=== PATIENT | male | born 1985 | race Caucasian/White ===

== ENCOUNTER 2016-08-26 10:40 | Inpatient (IN) | payer OTHER ==
[2016-08-26 10:47] VITALS: BMI 25.1
--- NOTE | 2016-08-26 12:54 | HP ---
COWS - Scale Resting Pulse: 1= [place] 81-100 Sweatin= No chills or Flushing Restless Observation: 3= Extraneous Movement Pupil Size: 2= Moderately Dilated Bone or Joint Aches: 2= Severe Diffuse Aches Runny Nose/ Eye Tearin= Nasal Congestion GI Upset > 30mins: 1= Stomach Cramp Tremor Observation: 2= Slight Tremor Visible Yawning Observation: 2= >3x During Session Anxiety or Irritability: 2=Irritable/Anxious Goose Flesh Skin: 3=Piloerection COWS Score: 19 CIWA Score - CIWA Score Nausea/Vomitin Muscle Tremors: 3 Anxiety: 4-Mod. Anxious/Guarded Agitation: 4-Moderately Restless Paroxysmal Sweats: 1-Minimal Palms Moist Orientation: 0-Oriented Tacttile Disturbances: 2-Mild Itch/Numbness/Burn Auditory Disturbances: 0-None Visual Disturbances: 0-None Headache: 0-None Present CIWA-Ar Total Score: 16 Admission ROS S - HPI Chief Complaint: DETOX [place] FOR HEROIN,ALCOHOL AND XANAX DEPENDENCE Allergies/Adverse Reactions: Allergies Allergy/AdvReac Type Severity Reaction Status Date / Time No Known Allergies Allergy Verified 08/26/16 11:08 History of Present Illness: 31 Y/O MALE WITH A HX OF ALCOHOL,HEROIN, XANAX AND COCAINE DEPENDENCE SEEKING DETOX [place]. Exam Limitations: No Limitations - Ebola screening Have you traveled outside of the country in the last 21 days: No Have you had contact with anyone from an Ebola affected area: No Have you been sick,other than usual withdrawal symptoms: No Do you have a fever: No - Review of Systems Constitutional: Chills, Loss of Appetite, Night Sweats, Changes in sleep EENT: reports: Nose Congestion Respiratory: reports: No Symptoms reported Cardiac: reports: No Symptoms Reported GI: reports: Poor Fluid Intake, Abdominal cramping : reports: No Symptoms Reported Musculoskeletal: reports: Back Pain, Joint Pain, Muscle Pain Integumentary: reports: No Symptoms Reported Neuro: reports: Tremors Endocrine: reports: No Symptoms Reported Hematology: reports: No Symptoms Reported Psychiatric: reports: Orientated x3, Anxious Other Systems: Reviewed and Negative Patient History - Patient Medical History Hx Anemia: No Hx Asthma: No Hx Chronic Obstructive Pulmonary Disease (COPD): No Hx Cardiac Disorders: No Hx Hypertension: No Hx Hypercholesterolemia: No HX Cerebrovascular Accident: No Hx Seizures: No Hx Diabetes: No Hx Gastrointestinal Disorders: No Hx Genitourinary Disorders: No Hx Sexually Transmitted Disorders: No Hx Renal Disease (ESRD): No Hx Thyroid Disease: No Hx Human Immunodeficiency Virus (HIV): No (NEGATIVE HX) Hx Hepatitis C: No Hx Depression: No Hx Suicide Attempt: No (DENIES) Hx Schizophrenia: No - Patient Surgical History Past Surgical History: No Hx Neurologic Surgery: No Hx Cataract Extraction: No Hx Cardiac Surgery: No Hx Lung Surgery: No Hx Breast Surgery: No Hx Breast Biopsy: No Hx Abdominal Surgery: No Hx Appendectomy: No Hx Cholecystectomy: No Hx Genitourinary Surgery: No Hx Orthopedic Surgery: No Anesthesia Reaction: No - PPD History Previous Implant?: Yes Documented Results: Negative w/o proof Implanted On Prior R Admission?: No Results: TBD PPD to be Administered?: Yes - Reproductive History Patient is a Female of Child Bearing Age (11 -55 yrs old): No (MALE) - Smoking Cessation Smoking history: Current every day smoker Have you smoked in the past 12 months: Yes Aproximately how many cigarettes per day: 30 Hx Chewing Tobacco Use: No Initiated information on smoking cessation: Yes 'Breaking Loose' booklet given: 08/26/16 - Substance & Tx. History Hx Alcohol Use: Yes ([facility])/ BEER) Hx Substance Use: Yes (HEROIN/COCAINE/XANAX) Substance Use Type: Alcohol, Cocaine, Heroin, Tranquilizers Hx Substance Use Treatment: No (FIRST TIME IN [place] TODAY) - Substances Abused Heroin Route: Inhalation Frequency: Daily Amount used: 25 BAGS Age of first use: 30 Date of Last Use: 08/26/16 Alcohol Route: Oral Frequency: 3-6 times per week Amount used: 1/2 [place] Age of first use: 17 Date of Last Use: 08/23/16 Alprazolam (Xanax) Route: Oral Frequency: 1-2 times per week Amount used: 2MG Age of first use: 29 Date of Last Use: 08/21/16 Cocaine Route: Inhalation Frequency: 1-2 times per week Amount used: 2 GRAMS Age of first use: 22 Date of Last Use: 08/23/16 Family Disease History - Family Disease History Family History: Denies Admission Physical Exam BHS - Vital Signs Vital Signs: Vital Signs - 24 hr 08/26/16 10:41 Temperature 98 F Pulse Rate 81 Respiratory 20 Rate Blood Pressure 133/73 - Physical General Appearance: Yes: Moderate Distress, Irritable, Anxious HEENTM: Yes: EOMI, Normocephalic, MARYSE, Pharynx Normal Respiratory: Yes: Chest Non-Tender, Lungs Clear, Normal Breath Sounds, No Respiratory Distress Breast: Yes: Breast Exam Deferred Cardiology: Yes: Regular Rhythm, Regular Rate, S1, S2 Abdominal: Yes: Normal Bowel Sounds, Non Tender, Flat, Soft Genitourinary: Yes: Other (N/C) Back: Yes: Within Normal Limits Musculoskeletal: Yes: full range of Motion, Gait Steady Extremities: Yes: Normal Range of Motion, Non-Tender 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: 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, Fully Oriented, Alert, Motor Strength 5/5 Integumentary: Yes: Dry, Warm Lymphatic: Yes: Within Normal Limits - Diagnostic (1) Alcohol dependence with uncomplicated withdrawal Current Visit: Yes Status: Acute (2) Opioid dependence with withdrawal Current Visit: Yes Status: Acute (3) Sedative, hypnotic or anxiolytic dependence with withdrawal, uncomplicated Current Visit: Yes Status: Acute (4) Cocaine dependence, uncomplicated Current Visit: Yes Status: Acute Cleared for Admission [facility] - Detox or Rehab [facility] Level of Care: Medically Managed Detox Regimen/Protocol: Methadone/Librium [facility] Breath Alcohol Content Breath Alcohol Content: 0 Urine Drug Screen - Results Drug Screen Negative: No Urine Drug Screen Results: CHRIS-Cocaine, OPI-Opiates
[2016-08-26] MEDS ORDERED: NICOTINE POLACRILEX 4 MG GUM BUC PRN (13:02)
[2016-08-26] MEDS ORDERED: MAGNESIUM HYDROX 2400MG/30ML ORAL SUSPENSION 30 ML CUP PO PRN (13:02)
[2016-08-26] MEDS ORDERED: chlordiazePOXIDE HCL 25 MG CAPSULE PO ONE (13:02)
[2016-08-26] MEDS ORDERED: MENTHOL/PHENOL 1 EACH UD MM PRN (13:02)
[2016-08-26] MEDS ORDERED: MAG HYDROX/AL HYDROX/SIMETH 30 ML UNIT-DOSE CUP PO PRN (13:02)
[2016-08-26] MEDS ORDERED: MAGNESIUM CITRATE 300 ML BOTTLE PO PRN (13:02)
[2016-08-26] MEDS ORDERED: diphenhydrAMINE HCL 50 MG CAPSULE PO PRN (13:02)
[2016-08-26] MEDS ORDERED: chlordiazePOXIDE HCL 25 MG CAPSULE PO PRN (13:02)
[2016-08-26] MEDS ORDERED: P-EPHED 60MG/TRIPROLIDI 2.5MG TABLET PO PRN (13:02)
[2016-08-26] MEDS ORDERED: IBUPROFEN 400 MG TABLET (FP) PO PRN (13:02)
[2016-08-26] MEDS ORDERED: ACETAMINOPHEN 325 MG TABLET (FP) PO PRN (13:02)
[2016-08-26] MEDS ORDERED: hydrOXYzine PAMOATE 25 MG CAPSULE (FP) PO PRN (13:02)
[2016-08-26] MEDS ORDERED: LOPERAMIDE HCL 2 MG CAPSULE PO PRN (13:02)
[2016-08-26] MEDS ORDERED: guaiFENesin/D-METHORPHAN HB 10 ML UNIT-DOSE CUPS PO PRN (13:02)
[2016-08-26] MEDS ORDERED: METHADONE HCL 10 MG TABLET (FOR DETOX USE ONLY) PO ONE ×2 (13:08→23:00)
[2016-08-26] MEDS: NICOTINE 21 MG/24 HOURS TOPICAL PATCH TD SCH (13:35)
--- NOTE | 2016-08-26 16:14 | EKG ---
Test Reason : Blood Pressure : / mmHG Vent. Rate : 077 BPM Atrial Rate : 077 BPM P-R Int : 164 ms QRS Dur : 100 ms QT Int : 394 ms P-R-T Axes : 067 032 055 degrees QTc Int : 445 ms NORMAL SINUS RHYTHM NORMAL ECG NO PREVIOUS ECGS AVAILABLE Confirmed by FRANK GLEZ MD ([id number]) on 08/26/2016 4:14:26 PM Referred By: Confirmed By:FRANK GLEZ MD
[2016-08-26] MEDS: chlordiazePOXIDE HCL 25 MG CAPSULE PO SCH ×2 (17:30→22:20)
[2016-08-26 20:02] LABS: URINE APPEARANCE CLEAR; URINE BILIRUBIN NEGATIVE (NEGATIVE); URINE BLOOD NEGATIVE (NEGATIVE); URINE COLOR LTYELLOW; URINE GLUCOSE (UA) NEGATIVE (NEGATIVE); URINE KETONE NEGATIVE (NEGATIVE); URINE LEUK ESTERASE NEGATIVE (NEGATIVE); URINE NITRITE NEGATIVE (NEGATIVE); URINE PROTEIN NEGATIVE (NEGATIVE); URINE UROBILINOGEN NEGATIVE E.U./dl (0.2-1.0)
[2016-08-26] MEDS ORDERED: THIAMINE HCL 100 MG TABLET (FP) PO SCH (22:00)
[2016-08-27] MEDS: chlordiazePOXIDE HCL 25 MG CAPSULE PO SCH ×2 (05:46→10:29)
[2016-08-27] MEDS ORDERED: METHADONE HCL 10 MG TABLET (FOR DETOX USE ONLY) PO SCH (10:00)
[2016-08-27] MEDS ORDERED: PRENATAL VITAMINS W/ FOLIC ACID TABLET (FP) PO SCH (10:00)
[2016-08-27 10:08] LABS: MCH 29.2 pg (25.7-33.7); MCHC 33.2 g/dl (32.0-35.9); MEAN PLT VOLUME 8.6 fl (7.5-11.1); PLATELET COUNT 213 K/MM3 (134-434); RDW 14.3 % (11.9-15.9); WHITE BLOOD COUNT 9.1 K/mm3 (4.0-10.0)
--- NOTE | 2016-08-27 10:20 | PN ---
[facility] CIWA - CIWA Score Nausea/Vomitin-No Nausea/No Vomiting Muscle Tremors: 4-Moderate,w/Arms Extend Anxiety: 4-Mod. Anxious/Guarded Agitation: 4-Moderately Restless Paroxysmal Sweats: 2 Orientation: 0-Oriented Tacttile Disturbances: 3-Moderate Itch/Numb/Burn Auditory Disturbances: 0-None Visual Disturbances: 0-None Headache: 0-None Present CIWA-Ar Total Score: 17 BHS COWS - Scale Resting Pulse: 0= [place] 80 or Below Sweatin= Chills/Flushing Restless Observation: 3= Extraneous Movement Pupil Size: 2= Moderately Dilated Bone or Joint Aches: 4=Acute Joint/Muscle Pain Runny Nose/ Eye Tearin= Nasal Congestion GI Upset > 30mins: 1= Stomach Cramp Tremor Observation of Outstretched Hands: 1= Tremor [place], Not Seen Yawning Observation: 1= 1-2x During Session Anxiety or Irritability: 2=Irritable/Anxious Goose Flesh Skin: 0=Smooth Skin COWS Score: 16 [facility] Progress Note (SOAP) Subjective: ANXIETY,SWEATS,FATIGUE Objective: 08/27/16 10:19 Vital Signs Temperature 97.3 F L 08/27/16 09:48 Pulse Rate 70 08/27/16 09:48 Respiratory Rate 18 08/27/16 09:48 Blood Pressure 94/57 08/27/16 09:48 O2 Sat by Pulse Oximetry (%) Laboratory Last Values WBC 9.1 K/mm3 (4.0-10.0) 08/27/16 05:50 RBC 4.97 M/mm3 (4.00-5.60) 08/27/16 05:50 Hgb 14.5 GM/dL (11.7-16.9) 08/27/16 05:50 Hct 43.7 % (35.4-49) 08/27/16 05:50 MCV 88.0 fl (80-96) 08/27/16 05:50 MCHC 33.2 g/dl (32.0-35.9) 08/27/16 05:50 RDW 14.3 % (11.9-15.9) 08/27/16 05:50 Plt Count 213 K/MM3 (134-434) 08/27/16 05:50 MPV 8.6 fl (7.5-11.1) 08/27/16 05:50 Urine Color Ltyellow 08/26/16 19:00 Urine Appearance Clear 08/26/16 19:00 Urine pH 5.0 (5.0-8.0) 08/26/16 19:00 Ur Specific [place] 1.023 (1.001-1.035) 08/26/16 19:00 Urine Protein Negative (NEGATIVE) 08/26/16 19:00 Urine Glucose (UA) Negative (NEGATIVE) 08/26/16 19:00 Urine Ketones Negative (NEGATIVE) 08/26/16 19:00 Urine Blood Negative (NEGATIVE) 08/26/16 19:00 Urine Nitrite Negative (NEGATIVE) 08/26/16 19:00 Urine Bilirubin Negative (NEGATIVE) 08/26/16 19:00 Urine Urobilinogen Negative E.U./dl (0.2-1.0) 08/26/16 19:00 Ur Leukocyte Esterase Negative (NEGATIVE) 08/26/16 19:00 Assessment: 08/27/16 10:19 WITHDRAWAL SX Plan: CONTINUE DETOX
[2016-08-27] MEDS: NICOTINE 21 MG/24 HOURS TOPICAL PATCH TD SCH (10:30)
[2016-08-27 11:28] LABS: ALBUMIN 4.5 g/dl (3.4-5.0); ALK PHOS 69 U/L (45-117); ANION GAP 10 (8-16); BILIRUBIN,TOTAL 0.8 mg/dL (0.2-1.0); CALCIUM 9.2 mg/dL (8.5-10.1); CO2 24 mmol/L (21-32); CREATININE 1.1 mg/dL (0.7-1.3); GLUCOSE,RANDOM 87 mg/dL (74-106); SGOT/AST 15 U/L (15-37); SGPT/ALT 25 U/L (12-78); TOT PROT 7.9 g/dl (6.4-8.2)
[2016-08-27] MEDS ORDERED: chlordiazePOXIDE HCL 25 MG CAPSULE PO SCH (17:00)
[2016-08-27 18:10] VITALS: BP 118/70; PULSE 78; TEMP 98.3
--- NOTE | 2016-08-27 21:09 | DS ---
[facility] Detox Discharge Summary Admission Date: 08/26/16 Discharge Date: 08/27/16 - History Present History: Alcohol Dependence, Opioid Dependence, Sedative Dependence Additional Comments: patient wants to leave the facility now, had verbal disagreement with staff patient signed out refused to wait face to face with the provider - Physical Exam Results Vital Signs: Vital Signs Temperature 98.3 F 08/27/16 18:10 Pulse Rate 78 08/27/16 18:10 Respiratory Rate 18 08/27/16 18:10 Blood Pressure 118/70 08/27/16 18:10 O2 Sat by Pulse Oximetry (%) Pertinent Admission Physical Exam Findings: withdrawal sx Laboratory Last Values WBC 9.1 K/mm3 (4.0-10.0) 08/27/16 05:50 RBC 4.97 M/mm3 (4.00-5.60) 08/27/16 05:50 Hgb 14.5 GM/dL (11.7-16.9) 08/27/16 05:50 Hct 43.7 % (35.4-49) 08/27/16 05:50 MCV 88.0 fl (80-96) 08/27/16 05:50 MCHC 33.2 g/dl (32.0-35.9) 08/27/16 05:50 RDW 14.3 % (11.9-15.9) 08/27/16 05:50 Plt Count 213 K/MM3 (134-434) 08/27/16 05:50 MPV 8.6 fl (7.5-11.1) 08/27/16 05:50 Sodium 140 mmol/L (136-145) 08/27/16 05:50 Potassium 4.2 mmol/L (3.5-5.1) 08/27/16 05:50 Chloride 106 mmol/L (98-107) 08/27/16 05:50 Carbon Dioxide 24 mmol/L (21-32) 08/27/16 05:50 Anion Gap 10 (8-16) 08/27/16 05:50 BUN 22 mg/dL (7-18) H 08/27/16 05:50 Creatinine 1.1 mg/dL (0.7-1.3) 08/27/16 05:50 Creat Clearance w eGFR > 60 (>60) 08/27/16 05:50 Random Glucose 87 mg/dL (74-106) 08/27/16 05:50 Calcium 9.2 mg/dL (8.5-10.1) 08/27/16 05:50 Total Bilirubin 0.8 mg/dL (0.2-1.0) 08/27/16 05:50 AST 15 U/L (15-37) 08/27/16 05:50 ALT 25 U/L (12-78) 08/27/16 05:50 Alkaline Phosphatase 69 U/L (45-117) 08/27/16 05:50 Total Protein 7.9 g/dl (6.4-8.2) 08/27/16 05:50 Albumin 4.5 g/dl (3.4-5.0) 08/27/16 05:50 Urine Color Ltyellow 08/26/16 19:00 Urine Appearance Clear 08/26/16 19:00 Urine pH 5.0 (5.0-8.0) 08/26/16 19:00 Ur Specific [place] 1.023 (1.001-1.035) 08/26/16 19:00 Urine Protein Negative (NEGATIVE) 08/26/16 19:00 Urine Glucose (UA) Negative (NEGATIVE) 08/26/16 19:00 Urine Ketones Negative (NEGATIVE) 08/26/16 19:00 Urine Blood Negative (NEGATIVE) 08/26/16 19:00 Urine Nitrite Negative (NEGATIVE) 08/26/16 19:00 Urine Bilirubin Negative (NEGATIVE) 08/26/16 19:00 Urine Urobilinogen Negative E.U./dl (0.2-1.0) 08/26/16 19:00 Ur Leukocyte Esterase Negative (NEGATIVE) 08/26/16 19:00 RPR Titer Nonreactive (NONREACTIVE) 08/27/16 05:50 lab noted - Treatment Hospital Course: Detox Protocol Followed, Responded well - Medication Discharge Medications: Ambulatory Orders NK [No Known Home Medication] 08/26/16 - AMA Did Patient Leave Against Medical Advice: Yes
[2016-08-28] MEDS ORDERED: METHADONE HCL 5 MG TABLET (FOR DETOX USE ONLY) PO SCH (10:00)
[2016-08-28] MEDS ORDERED: chlordiazePOXIDE 5 MG CAPSULE PO SCH (17:00)
[2016-08-29] MEDS ORDERED: chlordiazePOXIDE HCL 10 MG CAPSULE PO SCH (17:00)
[2016-08-30] MEDS ORDERED: METHADONE HCL 10 MG TABLET (FOR DETOX USE ONLY) PO SCH (10:00)
[2016-08-31] MEDS ORDERED: METHADONE HCL 5 MG TABLET (FOR DETOX USE ONLY) PO SCH (06:00)
== END 2016-08-27 18:52 | disposition left against medical advice (07) | DRG 770 ==
LOC: YASAS 10:40 → Y3N 12:34
PROVIDERS: ADMIT Internal Medicine; ATTEND Internal Medicine
PROC: HZ2ZZZZ Detoxification Services for Substance Abuse Treatment (ICD-10-PCS; principal; 2016-08-26)
DX: F11.23 Opioid dependence with withdrawal (principal); F13.230 Sedative, hypnotic or anxiolytic dependence with withdrawal, uncomplicated; F10.230 Alcohol dependence with withdrawal, uncomplicated; F14.20 Cocaine dependence, uncomplicated
CPT/HCPCS: 36415; 80053; 81003; 85027; 86593; 93005; 93010

== ENCOUNTER 2019-05-28 10:21 | Inpatient (IN) | payer OTHER ==
[2019-05-28 11:05] VITALS: BMI 23.8
--- NOTE | 2019-05-28 13:25 | HP ---
COWS - Scale Resting Pulse: 0= [place] 80 or Below Sweatin= Chills/Flushing Restless Observation: 1= Difficult to Sit Still Pupil Size: 0= Normal to Room Light Bone or Joint Aches: 1= Mild Discomfort Runny Nose/ Eye Tearin= Nasal Congestion GI Upset > 30mins: 3= Vomiting/Diarrhea Tremor Observation: 2= Slight Tremor Visible Yawning Observation: 0= None Anxiety or Irritability: 2=Irritable/Anxious Goose Flesh Skin: 3=Piloerection COWS Score: 14 CIWA Score Nausea/Vomitin Muscle Tremors: None Anxiety: 4-Mod. Anxious/Guarded Agitation: 1-Slight > Activity Paroxysmal Sweats: 1-Minimal Palms Moist Orientation: 0-Oriented Tacttile Disturbances: 0-None Auditory Disturbances: 0-None Visual Disturbances: 0-None Headache: 2-Mild CIWA-Ar Total Score: 13 - Admission Criteria [facility] Guidelines: Admission for Medically Managed Detox: Requires at least one of the followin. CIWA greater than 12 2. Seizures within the past 24 hours 3. Delirium tremens within the past 24 hours 4. Hallucinations within the past 24 hours 5. Acute intervention needed for co occurring medical disorder 6. Acute intervention needed for co occurring psychiatric disorder 7. Severe withdrawal that cannot be handled at a lower level of care (continued vomiting, continued diarrhea, abnormal vital signs) requiring intravenous medication and/or fluids 8. Admitting History and Physical - Admission Chief Complaint: opioid, alcohol dependence. crack, benzo abuse Limitations to Obtaining History: No Limitations - Past Medical History Additional Past Medical History: sciatica - Past Surgical History Past Surgical History: Yes: None - Smoking History Smoking history: Current every day smoker Have you smoked in the past 12 months: Yes Aproximately how many cigarettes per day: 30 - Alcohol/Substance Use Hx Alcohol Use: Yes ([facility]([place])/ BEER) Admission ROS S - HPI Allergies/Adverse Reactions: Allergies Allergy/AdvReac Type Severity Reaction Status Date / Time No Known Allergies Allergy Verified 05/28/19 10:55 History of Present Illness: 34 y.o. M PMH sciatica, hx of incarceration 3 yrs ago presenting for detox. He wants to start doing right by his and son and would like to get clean not only for them but for himself Pt had never completed a detox or rehab program in the past. Heroin: Sniffs, never IVDU. Used x 4 years. Last used last night, 8 bags. 1-1.5 bundles daily. Patient is currently in methadone 60mg (obtains from [facility]). Crack: uses x 2 weeks. Smokes, never injected. Used ~0.5g daily. Xanax: x2 months from street. Uses 3-5 pills 2mg each daily. EtOH: has been drinking since age 16. Longest sober period 10 years, recently started drinking again 1 month ago. Drink of choice [facility]. Drinks 1 pint daily. Never passed out from drinking. Never had seizures from not drinking. PSH: none Social hx: Lives in [place] in apartment, alone. Has good family support system. Not currently working. All: NKDA/ NKFA Meds: none Exam Limitations: No Limitations - Ebola screening Have you traveled outside of the country in the last 21 days: No (N) Have you had contact with anyone from an Ebola affected area: No - Review of Systems Constitutional: No Symptoms Reported Patient History - Patient Medical History Hx Anemia: No Hx Asthma: No Hx Chronic Obstructive Pulmonary Disease (COPD): No Hx Cardiac Disorders: No Hx Hypertension: No Hx Hypercholesterolemia: No HX Cerebrovascular Accident: No Hx Seizures: No Hx Diabetes: No Hx Gastrointestinal Disorders: No Hx Genitourinary Disorders: No Hx Sexually Transmitted Disorders: No Hx Renal Disease (ESRD): No Hx Thyroid Disease: No Hx Human Immunodeficiency Virus (HIV): No (NEGATIVE HX) Hx Hepatitis C: No Hx Depression: No Hx Suicide Attempt: No (DENIES) Hx Schizophrenia: No - Patient Surgical History Past Surgical History: No Hx Neurologic Surgery: No Hx Cataract Extraction: No Hx Cardiac Surgery: No Hx Lung Surgery: No Hx Breast Surgery: No Hx Breast Biopsy: No Hx Abdominal Surgery: No Hx Appendectomy: No Hx Cholecystectomy: No Hx Genitourinary Surgery: No Hx Orthopedic Surgery: No Anesthesia Reaction: No - PPD History Date: 08/28/16 Results: TBD - Smoking Cessation Smoking history: Current every day smoker Have you smoked in the past 12 months: Yes Aproximately how many cigarettes per day: 30 Hx Chewing Tobacco Use: No Initiated information on smoking cessation: Yes 'Breaking Loose' booklet given: 05/28/19 - Substances abused Alcohol Substance route: Oral Frequency: Daily Amount used: 1 pint of vodka Age of first use: 16 Date of last use: 05/27/19 Crack Substance route: Smoking Frequency: 1-2 times per week Amount used: $40 Age of first use: 25 Date of last use: 05/27/19 Heroin Substance route: Inhalation Frequency: Daily Amount used: 1-2 bundles Age of first use: 30 Date of last use: 05/27/19 Alprazolam (Xanax) Substance route: Oral Frequency: 3-6 times per week Amount used: 4-5/2mg tabs Age of first use: 30 Date of last use: 05/27/19 Admission Physical Exam [facility] - Vital Signs Vital Signs: Vital Signs - 24 hr 05/28/19 10:49 Temperature 97.5 F L Pulse Rate 73 Respiratory 16 Rate Blood Pressure 110/67 - Physical General Appearance: Yes: Within Normal Limits, No Apparent Distress HEENTM: Yes: Hearing grossly Normal, Normocephalic, MARYSE Respiratory: Yes: Within Normal Limits, Lungs Clear, Normal Breath Sounds Cardiology: Yes: Within Normal Limits, Regular Rhythm, Regular Rate, S1, S2 Abdominal: Yes: Normal Bowel Sounds, Non Tender, Soft Back: Yes: Normal Inspection, Other (tender to palp) Musculoskeletal: Yes: Within Normal Limits, full range of Motion Extremities: Yes: Within Normal Limits, Normal Range of Motion, Non-Tender 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: 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, Fully Oriented, Alert Integumentary: Yes: Within Normal Limits Lymphatic: Yes: Within Normal Limits - Diagnostic (1) Alcohol dependence with uncomplicated withdrawal Current Visit: No Status: Acute (2) Cocaine dependence, uncomplicated Current Visit: No Status: Acute (3) Opioid dependence with withdrawal Current Visit: No Status: Acute (4) Sedative, hypnotic or anxiolytic dependence with withdrawal, uncomplicated Current Visit: No Status: Acute Cleared for Admission [facility] - Detox or Rehab [facility] Level of Care: Medically Supervised Screened but not Admitted - Documentation of Visit Screened but not Admitted: No Breathalyzer - Breathalyzer Breathalyzer: 0 Urine Drug Screen - Test Device Lot number: [id number] Expiration date: 01/01/21 - Control Is test valid?: Yes - Results Drug screen NEGATIVE: No Urine drug screen results: CHRIS-Cocaine, FEN-Fentanyl, MOP-Opiates, OXY-Oxycodone , MTD-Methadone, BZO-Benzodiazepines Inpatient Rehab Admission - Rehab Decision to Admit Inpatient rehab admission?: No
--- NOTE | 2019-05-28 14:23 | PN ---
"Teaching Attending Note Name of Resident: Kayla Jeong ATTENDING PHYSICIAN STATEMENT I saw and evaluated the patient. I reviewed the resident's note and discussed the case with the resident. I agree with the resident's findings and plan as documented. SUBJECTIVE: 34 y.o. M pt requesting detox from etoh and benzo use , prior detox @ this facility 2016, reports 1 pint liquor/ d Heroin: denies IVDU, currently in MMTP 60 mg /day , first used 4 years ago , latest use last night, 8 bags of heroin , average daily use 1-1.5 bundle . Crack: use x 2 weeks via inhalation . Xanax: x [address], 3-5 sticks of 2mg each. OBJECTIVE: wnwd This report was requested by: Akila Gallardo | Reference #: [id number] Others' Prescriptions Patient Name: Spencer Silva Date: 1985 Address: [address] [place] [address] Sex: Male Rx Written Rx Dispensed Drug Quantity Days Supply Prescriber Name 01/07/2019 01/09/2019 chlordiazepoxide 25 mg capsule 18 3 O' Meally-Tara Bal Vital Signs - 24 hr 05/28/19 10:49 Temperature 97.5 F L Pulse Rate 73 Respiratory 16 Rate Blood Pressure 110/67 ASSESSMENT AND PLAN: Alcohol dependence / Sedative dependence - Librium detox Opioid dependence on agonist therapy nicotine dependence / cocaine dependence ."
[2019-05-28] MEDS ORDERED: MENTHOL/PHENOL 1 EACH UD MM PRN (14:26)
[2019-05-28] MEDS ORDERED: hydrOXYzine PAMOATE 25 MG CAPSULE (FP) PO PRN (14:26)
[2019-05-28] MEDS ORDERED: ACETAMINOPHEN 325 MG TABLET (FP) PO PRN ×2 (14:26)
[2019-05-28] MEDS ORDERED: chlordiazePOXIDE HCL 10 MG CAPSULE PO PRN (14:26)
[2019-05-28] MEDS ORDERED: NICOTINE POLACRILEX 2 MG GUM BUC PRN (14:26)
[2019-05-28] MEDS ORDERED: BISMUTH SUBSALICYLATE 262 MG/15 ML BTL PO PRN (14:26)
[2019-05-28] MEDS ORDERED: MAGNESIUM CITRATE 300 ML BOTTLE PO PRN (14:26)
[2019-05-28] MEDS ORDERED: METHOCARBAMOL 500 MG TABLET PO PRN (14:26)
[2019-05-28] MEDS ORDERED: MAG HYDROX/AL HYDROX/SIMETH 30 ML UNIT-DOSE CUP PO PRN (14:26)
[2019-05-28] MEDS ORDERED: MELATONIN 5 MG TABLETS PO PRN (14:26)
[2019-05-28] MEDS ORDERED: IBUPROFEN 400 MG TABLET (FP) PO PRN (14:26)
[2019-05-28] MEDS ORDERED: MAGNESIUM HYDROX 2400MG/30ML ORAL SUSPENSION 30 ML CUP PO PRN (14:26)
[2019-05-28] MEDS: NICOTINE 14 MG/24 HOURS TOPICAL PATCH TD SCH (16:07)
[2019-05-28 17:02] LABS: HEMATOCRIT 37.8 % (35.4-49); HEMOGLOBIN 12.6 GM/dL (11.7-16.9); MCH 28.5 pg (25.7-33.7); MCHC 33.3 g/dl (32.0-35.9); MEAN CELL VOLUME 85.6 fl (80-96); MEAN PLT VOLUME 8.2 fl (7.5-11.1); PLATELET COUNT 257 K/MM3 (134-434); RBC 4.42 M/mm3 (4.00-5.60); RDW 14.8 % (11.9-15.9)
[2019-05-28 17:14] LABS: ALBUMIN 4.6 g/dl (3.4-5.0); BILIRUBIN,TOTAL 1.1 mg/dL (0.2-1); BLOOD UREA NITROGEN 19.8 mg/dL (7-18); CALCIUM 9.6 mg/dL (8.5-10.1); CREATININE 1.1 mg/dL (0.55-1.3); POTASSIUM 3.3 mmol/L (3.5-5.1)
[2019-05-28] MEDS ORDERED: THIAMINE HCL 100 MG TABLET (FP) PO SCH (22:00)
[2019-05-28] MEDS: chlordiazePOXIDE HCL 25 MG CAPSULE PO SCH (22:57)
[2019-05-29] MEDS: chlordiazePOXIDE HCL 25 MG CAPSULE PO SCH ×2 (05:54→15:48)
[2019-05-29] MEDS ORDERED: PRENATAL VITAMINS W/ FOLIC ACID TABLET (FP) PO SCH (10:00)
[2019-05-29] MEDS: NICOTINE 14 MG/24 HOURS TOPICAL PATCH TD SCH (12:02)
--- NOTE | 2019-05-29 12:49 | PN ---
S CIWA - CIWA Score Nausea/Vomitin-No Nausea/No Vomiting Muscle Tremors: 2 Anxiety: 2 Agitation: 0-Normal Activity Paroxysmal Sweats: 3 Orientation: 0-Oriented Tacttile Disturbances: 0-None Auditory Disturbances: 0-None Visual Disturbances: 0-None Headache: 2-Mild CIWA-Ar Total Score: 9 S COWS - Scale Resting Pulse: 0= [place] 80 or Below Sweatin= Beads of Sweat on Face Restless Observation: 1= Difficult to Sit Still Pupil Size: 0= Normal to Room Light Bone or Joint Aches: 2= Severe Diffuse Aches Runny Nose/ Eye Tearin= None GI Upset > 30mins: 0= None Tremor Observation of Outstretched Hands: 0= None Yawning Observation: 1= 1-2x During Session Anxiety or Irritability: 2=Irritable/Anxious Goose Flesh Skin: 0=Smooth Skin COWS Score: 9 S Progress Note (SOAP) Subjective: c/o sweats, anxiety, irritability, and headache. Objective: 05/29/19 12:54 Vital Signs 05/29/19 05/29/19 06:40 08:00 Temperature 97.7 F 98.1 F Pulse Rate 60 54 L Respiratory 18 18 Rate Blood Pressure 100/55 L 100/51 L Lab Results WBC 8.0 K/mm3 (4.0-10.0) 05/28/19 14:50 RBC 4.42 M/mm3 (4.00-5.60) 05/28/19 14:50 Hgb 12.6 GM/dL (11.7-16.9) 05/28/19 14:50 Hct 37.8 % (35.4-49) 05/28/19 14:50 MCV 85.6 fl (80-96) 05/28/19 14:50 MCHC 33.3 g/dl (32.0-35.9) 05/28/19 14:50 RDW 14.8 % (11.9-15.9) 05/28/19 14:50 Plt Count 257 K/MM3 (134-434) 05/28/19 14:50 Sodium 140 mmol/L (136-145) 05/28/19 14:50 Potassium 3.3 mmol/L (3.5-5.1) L 05/28/19 14:50 Chloride 104 mmol/L (98-107) 05/28/19 14:50 Carbon Dioxide 28 mmol/L (21-32) 05/28/19 14:50 Anion Gap 8 MMOL/L (8-16) 05/28/19 14:50 BUN 19.8 mg/dL (7-18) H 05/28/19 14:50 Creatinine 1.1 mg/dL (0.55-1.3) 05/28/19 14:50 Random Glucose 94 mg/dL (74-106) 05/28/19 14:50 Calcium 9.6 mg/dL (8.5-10.1) 05/28/19 14:50 Labs noted. Assessment: 05/29/19 12:54 AOX3, in no acute respiratory distress. Full ROM, ambulating in the unit. withdrawal symptoms. Plan: continue detox.
[2019-05-29] MEDS ORDERED: METHADONE HCL 10 MG TABLET PO SCH (15:30)
[2019-05-29] MEDS ORDERED: METHADONE 40 MG, METHADONE 20 MG PO SCH (16:00)
[2019-05-29] MEDS ORDERED: POTASSIUM CHLORIDE TABS 20 MEQ TABLET.ER (FP) PO ONE (16:02)
[2019-05-29] MEDS ORDERED: METHADONE HCL 10 MG TABLET ONE (17:06)
[2019-05-29] MEDS ORDERED: METHADONE HCL 40 MG DISPERSABLE TABLET ONE (17:07)
[2019-05-29 17:43] VITALS: BP 107/65; PULSE 56; TEMP 99.2
--- NOTE | 2019-05-29 21:19 | PN ---
[facility] Progress Note Note: patient did not want to competed treatment,hgh risk of relapning expalined,all attempts to convince patient to stay with no avail,signed release ama,advise to call 911 if not feeling well
--- NOTE | 2019-05-29 21:21 | DS ---
[facility] Detox Discharge Summary Admission Date: 05/28/19 Discharge Date: 05/29/19 - History Present History: Alcohol Dependence, Cocaine Dependence, Opioid Dependence, MMTP Additional Comments: patient left ama - Physical Exam Results Vital Signs: Vital Signs Temperature 99.2 F 05/29/19 17:42 Pulse Rate 56 L 05/29/19 17:42 Respiratory Rate 16 05/29/19 17:42 Blood Pressure 107/65 05/29/19 17:42 O2 Sat by Pulse Oximetry (%) Pertinent Admission Physical Exam Findings: withdrawal signs and symptom Vital Signs Temperature 99.2 F 05/29/19 17:42 Pulse Rate 56 L 05/29/19 17:42 Respiratory Rate 16 05/29/19 17:42 Blood Pressure 107/65 05/29/19 17:42 O2 Sat by Pulse Oximetry (%) Laboratory Last Values WBC 8.0 K/mm3 (4.0-10.0) 05/28/19 14:50 RBC 4.42 M/mm3 (4.00-5.60) 05/28/19 14:50 Hgb 12.6 GM/dL (11.7-16.9) 05/28/19 14:50 Hct 37.8 % (35.4-49) 05/28/19 14:50 MCV 85.6 fl (80-96) 05/28/19 14:50 MCH 28.5 pg (25.7-33.7) 05/28/19 14:50 MCHC 33.3 g/dl (32.0-35.9) 05/28/19 14:50 RDW 14.8 % (11.9-15.9) 05/28/19 14:50 Plt Count 257 K/MM3 (134-434) 05/28/19 14:50 MPV 8.2 fl (7.5-11.1) 05/28/19 14:50 Sodium 140 mmol/L (136-145) 05/28/19 14:50 Potassium 3.3 mmol/L (3.5-5.1) L 05/28/19 14:50 Chloride 104 mmol/L (98-107) 05/28/19 14:50 Carbon Dioxide 28 mmol/L (21-32) 05/28/19 14:50 Anion Gap 8 MMOL/L (8-16) 05/28/19 14:50 BUN 19.8 mg/dL (7-18) H 05/28/19 14:50 Creatinine 1.1 mg/dL (0.55-1.3) 05/28/19 14:50 Est GFR (CKD-EPI)AfAm 100.97 05/28/19 14:50 Est GFR (CKD-EPI)NonAf 87.12 05/28/19 14:50 Random Glucose 94 mg/dL (74-106) 05/28/19 14:50 Calcium 9.6 mg/dL (8.5-10.1) 05/28/19 14:50 Total Bilirubin 1.1 mg/dL (0.2-1) H 05/28/19 14:50 AST 21 U/L (15-37) 05/28/19 14:50 ALT 25 U/L (13-61) 05/28/19 14:50 Alkaline Phosphatase 73 U/L (45-117) 05/28/19 14:50 Total Protein 8.0 g/dl (6.4-8.2) 05/28/19 14:50 Albumin 4.6 g/dl (3.4-5.0) 05/28/19 14:50 RPR Titer Nonreactive (NONREACTIVE) 05/29/19 05:50 - Medication Discharge Medications: Ambulatory Orders Methadone [Dolophine -] 60 mg PO DAILY 05/28/19 - Diagnosis (1) Alcohol dependence with uncomplicated withdrawal Status: Acute (2) Cocaine dependence, uncomplicated Status: Acute (3) Opioid dependence with withdrawal Status: Acute (4) Sedative, hypnotic or anxiolytic dependence with withdrawal, uncomplicated Status: Acute - AMA Did Patient Leave Against Medical Advice: Yes
[2019-05-30] MEDS ORDERED: chlordiazePOXIDE 5 MG CAPSULE PO SCH (05:00)
[2019-05-31] MEDS ORDERED: chlordiazePOXIDE HCL 10 MG CAPSULE PO PRN
[2019-05-31] MEDS ORDERED: chlordiazePOXIDE HCL 10 MG CAPSULE PO SCH (05:00)
[2019-06-01] MEDS ORDERED: chlordiazePOXIDE HCL 10 MG CAPSULE PO ONE (05:00)
== END 2019-05-29 17:32 | disposition left against medical advice (07) | DRG 770 ==
LOC: YASAS 10:21 → Y6N 15:06
PROVIDERS: ADMIT Allergy & Immunology; ATTEND Allergy & Immunology
PROC: HZ2ZZZZ Detoxification Services for Substance Abuse Treatment (ICD-10-PCS; principal; 2019-05-28)
DX: F10.230 Alcohol dependence with withdrawal, uncomplicated (principal); F11.23 Opioid dependence with withdrawal; F13.230 Sedative, hypnotic or anxiolytic dependence with withdrawal, uncomplicated; F14.20 Cocaine dependence, uncomplicated; F17.210 Nicotine dependence, cigarettes, uncomplicated
CPT/HCPCS: 36415; 80053; 85027; 86593

== ENCOUNTER 2020-06-23 08:37 | Inpatient (IN) | payer OTHER ==
[2020-06-23 09:34] VITALS: BMI 25.4
[2020-06-23] MEDS ORDERED: MAGNESIUM CITRATE 300 ML BOTTLE PO PRN (09:57)
[2020-06-23] MEDS ORDERED: METHADONE HCL 10 MG TABLET (FOR DETOX USE ONLY) PO ONE (09:57)
[2020-06-23] MEDS ORDERED: ONDANSETRON *ODT* 4 MG TABLET SL PRN (09:57)
[2020-06-23] MEDS ORDERED: NICOTINE POLACRILEX 2 MG GUM BUC PRN (09:57)
[2020-06-23] MEDS ORDERED: MAG HYDROX/AL HYDROX/SIMETH 30 ML UNIT-DOSE CUP PO PRN (09:57)
[2020-06-23] MEDS ORDERED: ACETAMINOPHEN 325 MG TABLET (FP) PO PRN ×2 (09:57)
[2020-06-23] MEDS ORDERED: MAGNESIUM HYDROX 2400MG/30ML ORAL SUSPENSION 30 ML CUP PO PRN (09:57)
[2020-06-23] MEDS ORDERED: BISMUTH SUBSALICYLATE 262 MG/15 ML BTL PO PRN (09:57)
[2020-06-23] MEDS ORDERED: MENTHOL/PHENOL 1 EACH UD MM PRN (09:57)
[2020-06-23] MEDS ORDERED: cloNIDine HCL 0.1 MG TABLET PO PRN (09:57)
[2020-06-23] MEDS: NICOTINE 7 MG/24 HOURS TOPICAL PATCH TD SCH (10:57)
[2020-06-23] MEDS: PRENATAL VITAMINS W/ FOLIC ACID TABLET (FP) PO SCH (10:57)
[2020-06-23] MEDS: hydrOXYzine PAMOATE 25 MG CAPSULE (FP) PO SCH ×3 (10:57→17:24)
[2020-06-23 14:32] LABS: CALCIUM 9.3 mg/dL (8.5-10.1)
[2020-06-23 14:33] LABS: ALBUMIN 4.4 g/dl (3.4-5.0); BLOOD UREA NITROGEN 23.4 mg/dL (7-18)
[2020-06-23 14:35] LABS: HEMOGLOBIN 13.4 GM/dL (11.7-16.9); MCH 28.7 pg (25.7-33.7); MCHC 33.5 g/dl (32.0-35.9); MEAN CELL VOLUME 85.7 fl (80-96); MEAN PLT VOLUME 8.4 fl (7.5-11.1); PLATELET COUNT 259 K/MM3 (134-434); RBC 4.66 M/mm3 (4.00-5.60); RDW 14.5 % (11.9-15.9); WHITE BLOOD COUNT 8.9 K/mm3 (4.0-10.0)
[2020-06-23 14:36] LABS: CREATININE 1.1 mg/dL (0.55-1.3)
[2020-06-23 14:38] LABS: BILIRUBIN,TOTAL 0.8 mg/dL (0.2-1); TOT PROT 8.1 g/dl (6.4-8.2)
[2020-06-23] MEDS: MELATONIN 5 MG TABLETS PO SCH (21:12)
[2020-06-23] MEDS: MIRTAZAPINE 15 MG TABLET (FP) PO SCH (21:12)
[2020-06-23] MEDS: THIAMINE HCL 100 MG TABLET (FP) PO SCH (21:12)
[2020-06-23] MEDS: hydrOXYzine PAMOATE 50 MG CAPSULE (FP) PO PRN (21:12)
[2020-06-23] MEDS: METHOCARBAMOL 500 MG TABLET PO PRN (21:13)
[2020-06-24] MEDS: METHOCARBAMOL 500 MG TABLET PO PRN ×3 (06:02→23:12)
[2020-06-24] MEDS ORDERED: METHADONE HCL 10 MG TABLET (FOR DETOX USE ONLY) ONE (09:22)
[2020-06-24] MEDS ORDERED: METHADONE HCL 5 MG TABLET (FOR DETOX USE ONLY) ONE (09:23)
[2020-06-24] MEDS ORDERED: METHADONE (DETOX) 20 MG, METHADONE (DETOX) 5 MG PO ONE (10:00)
[2020-06-24] MEDS: PRENATAL VITAMINS W/ FOLIC ACID TABLET (FP) PO SCH (10:07)
[2020-06-24] MEDS: NICOTINE 7 MG/24 HOURS TOPICAL PATCH TD SCH (10:07)
[2020-06-24] MEDS: IBUPROFEN 400 MG TABLET (FP) PO PRN ×2 (10:09→18:16)
[2020-06-24] MEDS: hydrOXYzine PAMOATE 50 MG CAPSULE (FP) PO PRN ×2 (10:09→17:15)
[2020-06-24] MEDS: MIRTAZAPINE 15 MG TABLET (FP) PO SCH (22:14)
[2020-06-24] MEDS: MELATONIN 5 MG TABLETS PO SCH (22:15)
[2020-06-24] MEDS: THIAMINE HCL 100 MG TABLET (FP) PO SCH (22:15)
[2020-06-25] MEDS ORDERED: METHADONE HCL 10 MG TABLET (FOR DETOX USE ONLY) PO ONE (10:00)
[2020-06-25] MEDS: NICOTINE 7 MG/24 HOURS TOPICAL PATCH TD SCH (10:12)
[2020-06-25] MEDS: PRENATAL VITAMINS W/ FOLIC ACID TABLET (FP) PO SCH (10:12)
[2020-06-25] MEDS: METHOCARBAMOL 500 MG TABLET PO PRN ×2 (10:12→17:17)
[2020-06-25] MEDS: hydrOXYzine PAMOATE 50 MG CAPSULE (FP) PO PRN (17:17)
[2020-06-25] MEDS: THIAMINE HCL 100 MG TABLET (FP) PO SCH (22:10)
[2020-06-25] MEDS: MELATONIN 5 MG TABLETS PO SCH (22:10)
[2020-06-25] MEDS: MIRTAZAPINE 15 MG TABLET (FP) PO SCH (22:10)
[2020-06-25] MEDS: IBUPROFEN 400 MG TABLET (FP) PO PRN (23:28)
[2020-06-26] MEDS: IBUPROFEN 400 MG TABLET (FP) PO PRN (06:07)
[2020-06-26] MEDS: METHOCARBAMOL 500 MG TABLET PO PRN ×2 (06:08→22:02)
[2020-06-26] MEDS ORDERED: METHADONE HCL 10 MG TABLET (FOR DETOX USE ONLY) ONE (09:05)
[2020-06-26] MEDS ORDERED: METHADONE HCL 5 MG TABLET (FOR DETOX USE ONLY) ONE (09:06)
[2020-06-26] MEDS ORDERED: METHADONE (DETOX) 10 MG, METHADONE (DETOX) 5 MG PO ONE (10:00)
[2020-06-26] MEDS: PRENATAL VITAMINS W/ FOLIC ACID TABLET (FP) PO SCH (10:09)
[2020-06-26] MEDS: NICOTINE 7 MG/24 HOURS TOPICAL PATCH TD SCH (10:10)
[2020-06-26] MEDS: hydrOXYzine PAMOATE 50 MG CAPSULE (FP) PO PRN (20:25)
[2020-06-26] MEDS: MIRTAZAPINE 15 MG TABLET (FP) PO SCH (22:00)
[2020-06-26] MEDS: MELATONIN 5 MG TABLETS PO SCH (22:01)
[2020-06-26] MEDS: THIAMINE HCL 100 MG TABLET (FP) PO SCH (22:01)
[2020-06-27 09:07] VITALS: BP 112/75; PULSE 78; TEMP 97.7
[2020-06-27] MEDS ORDERED: METHADONE HCL 10 MG TABLET (FOR DETOX USE ONLY) PO ONE (10:00)
[2020-06-27] MEDS: NICOTINE 7 MG/24 HOURS TOPICAL PATCH TD SCH (10:01)
[2020-06-27] MEDS: PRENATAL VITAMINS W/ FOLIC ACID TABLET (FP) PO SCH (10:01)
[2020-06-28] MEDS ORDERED: METHADONE HCL 5 MG TABLET (FOR DETOX USE ONLY) PO ONE (06:00)
== END 2020-06-27 10:06 | disposition home or self-care (01) | DRG 773 ==
LOC: YASAS 08:37 → Y3N 09:55
PROVIDERS: ADMIT Allergy & Immunology; ATTEND Allergy & Immunology
PROC: HZ2ZZZZ Detoxification Services for Substance Abuse Treatment (ICD-10-PCS; principal; 2020-06-23)
DX: F11.23 Opioid dependence with withdrawal (principal); F10.230 Alcohol dependence with withdrawal, uncomplicated; F14.20 Cocaine dependence, uncomplicated; F17.210 Nicotine dependence, cigarettes, uncomplicated; F41.0 Panic disorder [episodic paroxysmal anxiety]; F32.9 Major depressive disorder, single episode, unspecified; G47.00 Insomnia, unspecified
CPT/HCPCS: 36415; 80053; 85027; 86780; C9803; J0735; U0003